=== PATIENT | female | born 1990 | race Caucasian/White ===

== ENCOUNTER → 2017-08-18 | Outpatient (CLI) | payer OTHER ==
[~2017-08-18] MED LIST: OXYTOCIN 30 UNITS IN 0.9% NaCl 500ML IV BAG (J2590) As Ordered
== END ==
LOC: M LDO 16:45
DX: O99.89 Other specified diseases and conditions complicating pregnancy, childbirth and the puerperium (principal); N89.8 Other specified noninflammatory disorders of vagina; Z3A.32 32 weeks gestation of pregnancy
CPT/HCPCS: 76815

== ENCOUNTER 2019-03-12 11:26 | Emergency (ER) | payer OTHER ==
[~2019-03-12] VITALS: Ht 175.3 cm; Wt 97.7 kg
[~2019-03-12 11:26] MED LIST changes: +ACET-683 PO; +ALLE180T33 PO; +CALC500T21 PO; +FLUT1SPR2; +IBUP1TAB7 PO; +INDE60CA4 PO; +LEVO137T2 PO; +LEVO175T2 PO; +METF500T13 PO; -OXYTOCIN 30 UNITS IN 0.9% NaCl 500ML IV BAG (J2590) As Ordered; +PANT40TA3 PO; +PREN1TAB11 PO; +ROCA0.25 PO; +TRAZ-163 PO; +TRAZ-252 PO; +TUMS500C PO; +ZOLO50TA PO
[2019-03-12] MEDS ORDERED: ACETAMINOPHEN 500 MG TAB PO ONE (13:30)
[2019-03-12] MEDS ORDERED: ONDANSETRON 4 MG ORAL DISINTEGRATING TAB (Q0162 PER 1MG) PO ONE (13:30)
[2019-03-12 13:49] VITALS: BP 106/53
--- NOTE | 2019-03-12 14:55 | REP ---
CT BRAIN WITHOUT CONTRAST: CT brain performed without IV contrast. The ventricles are normal size and position with no midline shift or mass effect. Ashraf white differentiation is well maintained. There is no acute intracranial hemorrhage or extra-axial fluid collection. No skull fracture is seen. IMPRESSION: Negative noncontrast CT brain. Electronically Signed by Aren Ashraf MD 03/13/2019 12:06 A
--- NOTE | 2019-03-12 15:02 | REP ---
CT CERVICAL SPINE: CT cervical spine performed in the axial plane. Sagittal and coronal reconstruction images are performed. There is no compression fracture or malalignment. There is no prevertebral soft tissue swelling. Disc spaces are well preserved. There is no abnormal density in the spinal canal. Multiple metallic clips are seen in the neck soft tissues bilaterally. IMPRESSION: There is no evidence of acute fracture or dislocation. Electronically Signed by Aren Ashraf MD 03/13/2019 12:07 A
== END 2019-03-12 14:42 | disposition home or self-care (01) ==
LOC: M ED 11:26
DX: S16.1XXA Strain of muscle, fascia and tendon at neck level, initial encounter (principal); R51 Headache; R11.0 Nausea; V43.52XA Car driver injured in collision with other type car in traffic accident, initial encounter; Y92.410 Unspecified street and highway as the place of occurrence of the external cause; E07.9 Disorder of thyroid, unspecified; Z88.0 Allergy status to penicillin; Z88.8 Allergy status to other drugs, medicaments and biological substances; Z79.899 Other long term (current) drug therapy
CPT/HCPCS: 70450; 72125; 99284; Q0162

== ENCOUNTER 2019-03-15 13:48 | Emergency (ER) | payer OTHER ==
[~2019-03-15] VITALS: Ht 175.3 cm; Wt 97.7 kg
[2019-03-15] MEDS ORDERED: SYNT300T2 PO (13:53)
[2019-03-15] MEDS ORDERED: CALC500T68 PO (13:53)
[2019-03-15] MEDS ORDERED: [UNRECOGNIZED DRUG - CODE] (13:53)
[2019-03-15] MEDS ORDERED: IBUP-1114 PO (13:53)
[2019-03-15] MEDS ORDERED: IBUPROFEN 800 MG TAB PO ONE (16:00)
[2019-03-15] MEDS ORDERED: LIDOCAINE 5% (LIDODERM) PATCH TD ONE (16:00)
--- NOTE | 2019-03-15 17:47 | REP ---
HISTORY: Headache. COMPARISON: Three days ago, which was normal. TECHNIQUE: 4.5 mm contiguous transaxial sections were obtained from the skull base to the cerebral convexities with thin cuts through the posterior fossa without the administration of intravenous contrast. FINDINGS: The ventricles and sulci are consistent with the patient's age. There are no extra-axial fluid collections. There is no mass effect. The deep cerebral white matter is consistent with the patient's age. The orbital and petrous structures , cerebellopontine angles, and posterior fossa are unremarkable. The sella turcica, cavernous, and paracavernous structures are essentially unremarkable. The visualized portions of the paranasal sinuses and mastoid air cells are clear. Images of the skull base show no gross abnormality. IMPRESSION: Essentially unremarkable CT examination of the brain. No change from the prior exam. Electronically Signed by Anatoly Galloway DO 03/15/2019 06:08 P
--- NOTE | 2019-03-15 17:48 | REP ---
HISTORY: Shoulder pain. FINDINGS: Three views of the shoulder were performed. The acromioclavicular and glenohumeral relationships are within normal limits. There is no acute fracture or destructive osseous lesion. Electronically Signed by Anatoly Galloway DO 03/15/2019 06:08 P
[2019-03-15] MEDS ORDERED: CYCL10TA PO (17:54)
[2019-03-15 18:01] VITALS: BP 118/61
[2019-03-16] MEDS ORDERED: **NOTE PATIENT COMMENT** MISC XX SCH (04:00)
== END 2019-03-15 18:07 | disposition home or self-care (01) ==
LOC: M ED 13:48
DX: S16.1XXA Strain of muscle, fascia and tendon at neck level, initial encounter (principal); V49.9XXA Car occupant (driver) (passenger) injured in unspecified traffic accident, initial encounter; Y92.9 Unspecified place or not applicable; Y93.9 Activity, unspecified; Y99.9 Unspecified external cause status; M79.621 Pain in right upper arm; E04.9 Nontoxic goiter, unspecified; Z87.442 Personal history of urinary calculi; M50.10 Cervical disc disorder with radiculopathy, unspecified cervical region; Z79.899 Other long term (current) drug therapy; Z88.0 Allergy status to penicillin; Z88.8 Allergy status to other drugs, medicaments and biological substances

== ENCOUNTER 2019-07-06 05:51 | Emergency (ER) | payer OTHER ==
[~2019-07-06] VITALS: Ht 175.3 cm; Wt 104.5 kg
[~2019-07-06 05:51] MED LIST changes: +CALC500T68 PO; +CYCL10TA PO; +IBUP-1114 PO; +SYNT300T2 PO; +[UNRECOGNIZED DRUG - CODE]
[2019-07-06 06:35] LABS: HEMATOCRIT 36.5 % (36.0-47.0); HEMOGLOBIN 11.8 g/dl (12.0-15.5); MEAN CORPUSCULAR HEMOGLOBIN 27.3 pg (27.0-33.0); MEAN CORPUSCULAR HGB CONC 32.3 g/dl (32.0-36.5); MEAN CORPUSCULAR VOLUME 84.5 fl (80.0-96.0); PLATELET COUNT, AUTOMATED 207 10^3/uL (150-450); RED BLOOD COUNT 4.32 10^6/uL (4.00-5.40); WHITE BLOOD COUNT 6.8 10^3/uL (4.0-10.0)
[2019-07-06 06:37] LABS: APPEARANCE, URINE CLOUDY (CLEAR); BACTERIA, URINE AUTO 1+ (NEGATIVE); BILIRUBIN, URINE AUTO NEGATIVE (NEGATIVE); BLOOD, URINE BLOOD 3+ (NEGATIVE); COLOR, URINE YELLOW (YELLOW); GLUCOSE, URINE (UA) AUTO NEGATIVE (NEGATIVE); KETONE, URINE AUTO NEGATIVE (NEGATIVE); LEUKOCYTE ESTERASE, URINE AUTO 1+ (NEGATIVE); MUCUS, URINE SMALL (NEGATIVE); NITRITE, URINE AUTO NEGATIVE (NEGATIVE); PROTEIN, URINE AUTO NEGATIVE (NEGATIVE); RBC, URINE AUTO 5 /HPF (0-3); SPECIFIC GRAVITY URINE AUTO 1.023 (1.002-1.035); SQUAMOUS EPITHELIAL CELL UR AU 13 /HPF (0-6); UROBILINOGEN, URINE AUTO 0.2 mg/dL (0.0-2.0); WBC, URINE AUTO 11 /HPF (0-3)
[2019-07-06 07:17] LABS: BLOOD UREA NITROGEN 8 MG/DL (7-18); CALCIUM LEVEL 7.9 MG/DL (8.5-10.1); CARBON DIOXIDE LEVEL 25 MEQ/L (21-32); CHLORIDE LEVEL 107 MEQ/L (98-107); CREATININE FOR GFR 0.58 MG/DL (0.55-1.30); GLOMERULAR FILTRATION RATE > 60.0 (>60); GLUCOSE, FASTING 86 MG/DL (70-100); POTASSIUM SERUM 3.4 MEQ/L (3.5-5.1); SODIUM LEVEL 140 MEQ/L (136-145)
--- NOTE | 2019-07-06 07:30 | REPVR ---
PROCEDURE INFORMATION: Exam: US First Trimester, Transabdominal and US Duplex Artery or Vein, Ovaries, Limited Exam date and time: 07/06/2019 6:57 AM Clinical history: 29 years old, female; Lmp or gestational age (in weeks): 12w0d; Antepartum complications; Bleeding; ; Additional info: Vaginal bleeding 12 wks TECHNIQUE: Imaging protocol: Real-time transabdominal obstetrical ultrasound of the maternal pelvis and a first trimester , less than 14 weeks 0 days, with image documentation. Real-time duplex ultrasound scan of the arterial or venous flow of the ovaries with B-mode, color Doppler flow and spectral waveform analysis, limited Duplex. COMPARISON: CT ABD PELVIS WITH CONTRAST 01/12/2015 6:55 PM FINDINGS: Other findings: Estimated delivery date is 01/20/2020. GESTATION: Gestation: Single viable intrauterine gestation in the right cornu. Heart rate: heart rate is 173 beats per minute. Placenta: Unremarkable. No subchorionic bleed. Amniotic fluid: Amniotic and chorionic fluid are normal for gestational age. BIOMETRY: Estimated gestational age: Sonographically estimated gestational age is 11 weeks 5 days. On[place]-Rump length: Onaga-rump length of the pole is 5 cm. MATERNAL: Uterus: Bicornuate or septate uterine anatomy. Cervix: Unremarkable. Right adnexa: Right ovary measures 2.3 x 1.4 x 1.5 cm. Normal waveforms Left adnexa: Left ovary is obscured by bowel gas. Intraperitoneal: No intraperitoneal free fluid. IMPRESSION: Bicornuate or septate uterine anatomy. Single viable intrauterine gestation 11 weeks 5 days of age in the right cornu. Electronically signed by: Moe Forbes On 07/06/2019 07:30:41 AM
[2019-07-06 09:28] VITALS: BP 108/59
== END 2019-07-06 09:30 | disposition home or self-care (01) ==
LOC: M ED 05:51
DX: O20.0 Threatened abortion (principal); Z3A.11 11 weeks gestation of pregnancy; Z88.0 Allergy status to penicillin; Z88.9 Allergy status to unspecified drugs, medicaments and biological substances; Z79.899 Other long term (current) drug therapy

== ENCOUNTER 2023-01-06 13:10 | Emergency (ER) | payer OTHER ==
[~2023-01-06] VITALS: Ht 175.3 cm; Wt 109.2 kg
[~2023-01-06 13:10] MED LIST changes: +CYCL-707 PO; -CYCL10TA PO; +PANT40TA29 PO; -PANT40TA3 PO; -TRAZ-163 PO; +TRAZ-257 PO
[2023-01-06 13:11] VITALS: BP 126/62
[2023-01-06] MEDS ORDERED: FORT600S SQ (15:47)
[2023-01-06] MEDS ORDERED: [UNRECOGNIZED DRUG - CODE] PO (15:47)
== END 2023-01-06 19:33 | disposition home or self-care (01) ==
LOC: M ED 13:10
DX: M79.604 Pain in right leg (principal); E03.9 Hypothyroidism, unspecified; Z88.0 Allergy status to penicillin; Z88.8 Allergy status to other drugs, medicaments and biological substances; Z79.83 Long term (current) use of bisphosphonates; Z79.899 Other long term (current) drug therapy